=== PATIENT | male | born 1980 | race Caucasian/White ===

== ENCOUNTER 2020-01-19 15:29 | Emergency (ER) | payer OTHER ==
[~2020-01-19] VITALS: Ht 170.2 cm; Wt 86.2 kg
[2020-01-19 15:46] VITALS: BP 171/99
[2020-01-19] MEDS ORDERED: IBUPROFEN 600 MG TAB PO ONE (17:00)
== END 2020-01-19 17:25 | disposition home or self-care (01) ==
LOC: ER 15:31
DX: J02.9 Acute pharyngitis, unspecified (principal); J45.909 Unspecified asthma, uncomplicated; F17.290 Nicotine dependence, other tobacco product, uncomplicated